=== PATIENT | male | born 1955 | race African-American/Black ===

== ENCOUNTER → 2021-10-09 08:17 | Outpatient (CLI) | payer OTHER, SELFPAY ==
--- NOTE | ~2021-10-09 | MR_ITS ---
EXAMINATION: MR lumbar spine wo [facility] EXAM DATE: 10/09/2021 09:04 INDICATION: Lumbar radiculopathy , left leg pain and numbness. TECHNIQUE: Multi-sequential, multiplanar MR images of the lumbar spine were obtained without contrast . Sagittal T1, T2, T2 fat saturation images. Axial T2 weighted images. Comparison is made to prior examination from 07/28/2019. FINDINGS: There is chronic bilateral L5 spondylolysis with 6 mm anterolisthesis L5 on S1. Mild to mod erate disc disease from L2 through S1. The conus medullaris terminates at the L1/2 level and has norm al signal intensity and morphology. There are no suspicious marrow signal abnormalities. Paraspinal soft tissue is unremarkable. Level by level evaluation: T12-L1: There is a mild diffuse disc bulge. Facet arthropathy: Minimal. Neural foraminal stenosis: No stenosis. Central canal stenosis: No stenosis. L1-L2: Disc does not extend beyond the endplate margin. Facet arthropathy: Mild. Neural foraminal stenosis: No stenosis. Central canal stenosis: No stenosis. L2-L3: There is a mild to moderate diffuse disc bulge. Facet arthropathy: Mild. Neural foraminal stenosis: No stenosis. Central canal stenosis: No stenosis. L3-L4: There is a mild to moderate diffuse disc bulge. Facet arthropathy: Mild to moderate. Neural foraminal stenosis: Mild right. Central canal stenosis: Mild. L4-L5: There is a moderate diffuse disc bulge. Facet arthropathy: Moderate. Neural foraminal stenosis: Mild bilateral. Central canal stenosis: Mild to moderate. L5-S1: There is a moderate diffuse disc bulge. Facet arthropathy: Mild to moderate. Neural foraminal stenosis: Moderate to severe left, mild to moderate right. Central canal stenosis: Mild. Mild progression spondylosis, in the left L5-S1 neural foraminal stenosis compared to 2019. IMPRESSION: 1. L5 bilateral spondylolysis, grade 1 anterolisthesis and moderate to severe left neural foraminal stenosis. 2. Otherwise mild to moderate lumbar spondylosis. Reviewed, dictated and finalized at location B. [employer]
== END ==
PROVIDERS: PCP Family Medicine; Visit Provider Nurse Practitioner Adult Health
DX: M47.26 Other spondylosis with radiculopathy, lumbar region (principal)
CPT/HCPCS: 72148

== ENCOUNTER → 2022-12-07 17:35 | Outpatient (CLI) | payer OTHER, SELFPAY ==
--- NOTE | ~2022-12-07 | XR_ITS ---
EXAMINATION: XR chest 2V Exam Date/Time: 12/07/2022 17:45 CDT HISTORY: J45.40 - Moderate persistent asthma, uncomplicated Comparison: 05/01/2006. RESULT: Lines, tubes, and devices: None. Lungs and pleura: Clear. Cardiomediastinal silhouette: Stable. Other: No acute osseous or upper abdominal finding. IMPRESSION: No acute cardiopulmonary process. Reviewed, dictated and finalized at location K.
== END ==
PROVIDERS: PCP Family Medicine; Visit Provider Family Medicine
DX: J45.40 Moderate persistent asthma, uncomplicated (principal)
CPT/HCPCS: 71046

== ENCOUNTER 2022-12-21 15:15 | Outpatient (CLI) | payer OTHER, SELFPAY ==
--- NOTE | 2022-12-22 10:31 | WPDPFTINT ---
PFT Procedure Performed PFT Procedure Performed Spirometry with Pre/Post Bronchodilator Plethysmography (Lung Vol) Diffusing Cap (DLCO) Flow Vol Loop PFT Interpretation This is a pulmonary function test with pre and post-bronchodilator spirometry, plethysmography and diffusing capacity. The test was performed and results interpreted in accordance with the 2019 and 2005 ATS/ERS Task Force guidelines respectively using the Global Lung Function Initiative-2012 reference equations. Patient demonstrated good effort and cooperation. Reproducibility criteria were met. The quality of the pre bronchodilator spirometry maneuver was Grade A and post bronchodilator spirometry maneuver was Grade B. Findings: Spirometry: The contour the inspiratory and expiratory flow tracing are normal. The pre bronchodilator FVC is 4.14 L, 110% predicted. The pre bronchodilator FEV1 is 2.62 L, 90% predicted. The pre bronchodilator FEV1: FVC ratio 63%. The post bronchodilator FVC is 4.04 L, representing a 3% decrease. The post bronchodilator FEV1 is 3.04 L, representing a 16% increase. The post bronchodilator FEV1: FVC ratio 75%. Plethysmography: The total lung capacity 6.42 L, 104% predicted. Functional residual capacity is 4.04 L, 117% predicted. The residual volume is 2.28 L, 104% predicted. Diffusing capacity: The diffusing capacity unadjusted for hemoglobin and carboxyhemoglobin is 22.2, 81% predicted. The diffusing capacity adjusted for alveolar volume is 3.95, and 97% predicted. Impression: There is a mild obstructive abnormality with a normal FEV1 and with significant improvement after inhaling a single dose of albuterol. The lung volumes are normal. The diffusing capacity is normal. There are no prior studies for comparison
== END 2022-12-21 15:16 | disposition home or self-care (01) ==
LOC: ANHPFT 15:15
PROVIDERS: PCP Family Medicine; Visit Provider Family Medicine
DX: R94.2 Abnormal results of pulmonary function studies (principal)
CPT/HCPCS: 94060; 94726; 94729

== ENCOUNTER 2023-12-29 07:00 | Outpatient (NON) | payer OTHER, SELFPAY | END 2023-12-29 07:01 | disposition home or self-care (01) | PROVIDERS: PCP Family Medicine; Visit Provider Internal Medicine Gastroenterology | DX: K63.5 Polyp of colon (principal) | CPT/HCPCS: 88305 ==

== ENCOUNTER 2023-12-29 09:24 | Day surgery (SDC) | payer OTHER, SELFPAY ==
[2023-12-23 08:06] VITALS: BMI 30.2
[2023-12-24 09:51] VITALS: BMI 30.1
--- NOTE | 2023-12-29 07:42 | WPDANESEPPF ---
Anes - Initial Pre Proc Eval Procedure: Operation Date: 12/29/23 12:00 Proposed Procedures p Diagnostic Colonoscopy - Mark Ott MD Date/Time: 12/29/23 07:42 Surgeon: Mark Ott MD Pre Op Diagnosis: Personal history of colon polyps Patient Data Age: 68 Gender: M Height: 1.78 m Weight: 95.3 kg Allergies Allergy/AdvReac Type Severity Reaction Status Date / Time iodine Allergy Mild Swelling Verified 12/29/23 10:49 FISH Allergy Intermediate SWELLING Uncoded 12/29/23 10:49 Home Medications Medication Instructions Recorded Confirmed Type cholecalciferol (vitamin D3) 125 5,000 unit PO DAILY 08/08/19 12/29/23 History mcg (5,000 unit) tablet lisinopril 20 mg tablet 20 mg PO DAILY #90 tabs 03/11/23 12/29/23 Rx sildenafil (pulm.hypertension) 20 100 mg PO DAILY PRN sexual 03/11/23 12/29/23 Rx mg tablet activity #90 tabs meloxicam 15 mg tablet 15 mg PO DAILY PRN pain #90 tabs 06/14/23 12/29/23 Rx tamsulosin 0.4 mg capsule (Flomax) 0.4 mg PO QHS #90 caps 06/14/23 12/29/23 Rx metformin 500 mg tablet,extended 500 mg PO BID #180 tabs 07/16/23 12/29/23 Rx release 24hr (osmotic) mometasone-formoterol HFA 100 2 puff inhalation Q12H #39 grams 08/02/23 12/29/23 Rx mcg-5 mcg/actuation aerosol inhaler (Dulera) albuterol sulfate 90 mcg/actuation 2 puff inhalation Q4H PRN 12/21/23 12/29/23 Rx aerosol inhaler (ProAir HFA) shortness of breath or wheezing #27 grams atorvastatin 20 mg tablet 20 mg PO QHS #90 tabs 12/21/23 12/29/23 Rx mecobalamin (vitamin B12) 2,500 2,500 mcg PO DAILY 12/24/23 12/29/23 History mcg chewable tablet Patient hx anesthesia problems: none Family hx anesthesia problems: none Results Review: All pre-operative results and documents have been reviewed as part of the pre-operative evaluation. PMFSH Past Medical History Medical History (Updated 12/29/23 @ 07:43 by Erik Gomez, ) Abnormal fasting glucose glucose 104 with hemoglobin A1c 6.3 on 11/15/2021. Glucose 129 with hemoglobin A1c 6.0 on 12/05/2022. Glucose 96 with hemoglobin A1c 5.5 on 06/19/2023. Fasting glucose 97 with hemoglobin A1c 5.8 on 12/08/2023. Acute bilateral low back pain with left-sided sciatica Acute right-sided back pain with sciatica Asthma BMI 29.0-29.9,adult BMI 30.0-30.9,adult BMI 32.0-32.9,adult BPH without obstruction/lower urinary tract symptoms (~04/28/21) Chronic low back pain with left-sided sciatica Chronic low back pain with right-sided sciatica Chronic pain in left shoulder (~2022) Conjunctivitis Diabetes type 2, controlled Encounter for prostate cancer screening PSA is normal at 0.26 on 11/15/2021. PSA 0.27 on 12/05/2022. PSA 0.35 on 12/08/2023. Frozen shoulder syndrome (~2022) work injury 2018 with rotator cuff repair with progressively worsened range of motion with frozen shoulder currently 06/14/2023. Hypersomnia (~2022) Hypertension Lipoma of back right midback Microscopic hematuria (11/15/21) 1+ blood on urinalysis on 11/15/2021 . Urinalysis on 12/06/2021 was completely normal. trace amount of blood and trace amount of protein 12/05/2022. Urinalysis normal on 12/08/2023. Mixed hyperlipidemia cholesterol 209, HDL 54, triglycerides 59, LDL 140 with ratio 3.9 on 12/08/2023. Obesity (BMI 30.0-34.9) Overweight (BMI 25.0-29.9) Family History Family History (Updated 03/22/19 @ 16:38 by DOCTOR UNKNOWN) Sibling Patient's brother is , Onset Age: 35 Mother Acute myocardial infarction, Onset Age: 86 Father Family history of liver disease, Onset Age: 66 Social History Social History Smoking status: Never smoker Alcohol intake: never Substance use: never Substance use type: does not use Lack of Transportation: No Lack of Food: Never True Current Housing: I Have Housing Concerned About Future Housing: No Difficulty Paying Gas/Electric Bills:
[2023-12-29 10:53] VITALS: BP 142/86; PULSE 70; RESP 16; TEMP 36.6; O2SAT 99; BMI 29.0
[2023-12-29] MEDS: LACTATED RINGERS 1,000 ML 150 ML IV CONT (11:03)
[2023-12-29 11:06] LABS: Glucose Point of Care 90 mg/dl (65-105)
--- NOTE | 2023-12-29 11:23 | PM.HPGS ---
History of Present Illness History of Present Illness Consent: Risks, benefits, and alternatives have been discussed and questions answered. Patient agrees to proceed with procedure. Chief complaint: Personal history of colon polyps Narrative: Esa Duron is a 68 year old male presents for screening colonoscopy. Patient has a history of adenomatous colon polyps. Previous colonoscopies in 2018 and 2010. Patient reports his normal. He has no bleeding. Family history noncontributory. Review of Systems Review of Systems: All systems reviewed & are unremarkable except as noted in HPI and below COUNTS INCLUDE 234 BEDS AT THE [facility] Past Medical History Medical History (Updated 12/29/23 @ 07:43 by Erik Gomez, ) Abnormal fasting glucose glucose 104 with hemoglobin A1c 6.3 on 11/15/2021. Glucose 129 with hemoglobin A1c 6.0 on 12/05/2022. Glucose 96 with hemoglobin A1c 5.5 on 06/19/2023. Fasting glucose 97 with hemoglobin A1c 5.8 on 12/08/2023. Acute bilateral low back pain with left-sided sciatica Acute right-sided back pain with sciatica Asthma BMI 29.0-29.9,adult BMI 30.0-30.9,adult BMI 32.0-32.9,adult BPH without obstruction/lower urinary tract symptoms (~04/28/21) Chronic low back pain with left-sided sciatica Chronic low back pain with right-sided sciatica Chronic pain in left shoulder (~2022) Conjunctivitis Diabetes type 2, controlled Encounter for prostate cancer screening PSA is normal at 0.26 on 11/15/2021. PSA 0.27 on 12/05/2022. PSA 0.35 on 12/08/2023. Frozen shoulder syndrome (~2022) work injury 2018 with rotator cuff repair with progressively worsened range of motion with frozen shoulder currently 06/14/2023. Hypersomnia (~2022) Hypertension Lipoma of back right midback Microscopic hematuria (11/15/21) 1+ blood on urinalysis on 11/15/2021 . Urinalysis on 12/06/2021 was completely normal. trace amount of blood and trace amount of protein 12/05/2022. Urinalysis normal on 12/08/2023. Mixed hyperlipidemia cholesterol 209, HDL 54, triglycerides 59, LDL 140 with ratio 3.9 on 12/08/2023. Obesity (BMI 30.0-34.9) Overweight (BMI 25.0-29.9) Family History Family History (Updated 03/22/19 @ 16:38 by DOCTOR UNKNOWN) Sibling Patient's brother is , Onset Age: 35 Mother Acute myocardial infarction, Onset Age: 86 Father Family history of liver disease, Onset Age: 66 Social History Social History Smoking status: Never smoker Alcohol intake: never Substance use: never Substance use type: does not use Lack of Transportation: No Lack of Food: Never True Current Housing: I Have Housing Concerned About Future Housing: No Difficulty Paying Gas/Electric Bills: No Difficulty Paying for Meds: No Currently Unemployed: No Education: Associate Degree Difficulty w/ Childcare or Family Care: No Living arrangements: with family Spiritual care concerns: No Meds Home Medications and Allergies Home Medications Medication Instructions Recorded Confirmed Type cholecalciferol (vitamin D3) 125 5,000 unit PO DAILY 08/08/19 12/29/23 History mcg (5,000 unit) tablet lisinopril 20 mg tablet 20 mg PO DAILY #90 tabs 03/11/23 12/29/23 Rx sildenafil (pulm.hypertension) 20 100 mg PO DAILY PRN sexual 03/11/23 12/29/23 Rx mg tablet activity #90 tabs meloxicam 15 mg tablet 15 mg PO DAILY PRN pain #90 tabs 06/14/23 12/29/23 Rx tamsulosin 0.4 mg capsule (Flomax) 0.4 mg PO QHS #90 caps 06/14/23 12/29/23 Rx metformin 500 mg tablet,extended 500 mg PO BID #180 tabs 07/16/23 12/29/23 Rx release 24hr (osmotic) mometasone-formoterol HFA 100 2 puff inhalation Q12H #39 grams 08/02/23 12/29/23 Rx mcg-5 mcg/actuation aerosol inhaler (Dulera) albuterol sulfate 90 mcg/actuation 2 puff inhalation Q4H PRN 12/21/23 12/29/23 Rx aerosol inhaler (ProAir HFA) shortness of breath or wheezing #27 grams atorvastatin 2
[2023-12-29] MEDS: SIMETHICONE ORAL SUSPENSION 20 MG/0.3 ML 30 ML BOTTLE 0.6 ML IRRIGATION (11:44)
[2023-12-29 11:56] VITALS: BP 105/65; PULSE 75; RESP 16; O2SAT 92
[2023-12-29 12:06] VITALS: BP 110/66; PULSE 78; RESP 16; O2SAT 92
[2023-12-29 12:16] VITALS: BP 124/80; PULSE 78; RESP 18; O2SAT 96
--- NOTE | 2023-12-29 12:45 | WPDANESPN ---
Anes - Prog Note Post-Op Date/Time: 12/29/23 12:45 Cardiovascular status: normal Respiratory status: normal Airway patency: baseline Mental status: baseline Post-Op hydration status: normal Vital Signs: Last Vital Signs Temp 36.6 C 12/29/23 10:53 Pulse 78 12/29/23 12:16 Resp 18 12/29/23 12:16 BP 124/80 12/29/23 12:16 Pulse Ox 96 12/29/23 12:16 O2 Del Method Room Air 12/29/23 12:16 Pain Score (VAS): 0 I/O: Intake & Output 12/28/23 12/29/23 12/29/23 23:59 07:59 15:59 Intake Total 600 Balance 600 12/29/23 11:02 POC Capillary Glucose 90 Post-procedural complaints: none Patient Feedback: Patient satisfied with anesthetic care. Other Findings: Patient vital signs back to baseline. Patient denies nausea and vomiting. Patient's pain under control. Patient OK for discharge.
== END 2023-12-29 12:28 | disposition home or self-care (01) ==
PROVIDERS: PCP Family Medicine; Visit Provider Internal Medicine Gastroenterology
PROC: 0DJD8ZZ Inspection of Lower Intestinal Tract, Via Natural or Artificial Opening Endoscopic (ICD-10-PCS; CPT 45378; principal; 2023-12-29 12:00)
DX: Z86.010 Personal history of colon polyps (principal); D12.5 Benign neoplasm of sigmoid colon; K64.8 Other hemorrhoids
CPT/HCPCS: 45385